=== PATIENT | male | born 1975 | race Caucasian/White ===

== ENCOUNTER 2019-07-01 17:37 | Emergency (ER) | payer MEDICARE ==
[2019-07-01 17:40] VITALS: RESP 16; TEMP 98.5
[2019-07-01] MEDS ORDERED: IBUPROFEN 600 MG TAB PO STA (18:24)
--- NOTE | 2019-07-01 18:40 | XR ---
EXAMINATION TYPE: XR hand complete LT DATE OF EXAM: 07/01/2019 COMPARISON: NONE HISTORY: Pain TECHNIQUE: 3 views FINDINGS: Metacarpals are intact. I see no fracture nor dislocation. Joint spaces are normal. IMPRESSION: Negative left hand exam.
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
[2019-07-01 19:29] VITALS: BP 135/76; PULSE 69
== END 2019-07-01 19:26 | disposition home or self-care (01) ==
LOC: EC 17:37
DX: S63.92XA Sprain of unspecified part of left wrist and hand, initial encounter (principal); F17.200 Nicotine dependence, unspecified, uncomplicated; V49.9XXA Car occupant (driver) (passenger) injured in unspecified traffic accident, initial encounter
CPT/HCPCS: 99283